=== PATIENT | female | born 1950 | race Caucasian/White ===

== ENCOUNTER 2016-07-27 08:45 | Outpatient (RCR) | payer OTHER ==
[~2016-07-27 08:45] MED LIST: NKM
== END 2016-08-04 | disposition home or self-care (01) ==
LOC: PTY 08:45
DX: M79.1 Myalgia (principal)

== ENCOUNTER 2016-08-07 09:55 | Outpatient (RCR) | payer OTHER | END 2016-09-01 | disposition home or self-care (01) | LOC: PTY 09:55 | DX: M79.1 Myalgia (principal) ==

== ENCOUNTER 2016-09-02 08:30 | Outpatient (RCR) | payer OTHER | END 2016-10-02 | disposition home or self-care (01) | LOC: PTY 08:30 | DX: M79.1 Myalgia (principal) ==

== ENCOUNTER 2016-10-21 08:20 | Outpatient (RCR) | payer OTHER | END 2016-11-01 | disposition home or self-care (01) | LOC: PTY 08:20 | DX: M79.1 Myalgia (principal) ==

== ENCOUNTER 2016-11-19 09:15 | Outpatient (RCR) | payer OTHER | END 2016-12-02 | disposition home or self-care (01) | LOC: PTY 09:15 | DX: M79.1 Myalgia (principal) ==

== ENCOUNTER 2016-12-10 08:35 | Outpatient (RCR) | payer OTHER | END 2017-01-01 | disposition home or self-care (01) | LOC: PTY 08:35 | DX: M79.1 Myalgia (principal) ==

== ENCOUNTER 2017-01-19 08:30 | Outpatient (RCR) | payer OTHER | END 2017-02-01 | disposition home or self-care (01) | LOC: PTY 08:30 | DX: M79.1 Myalgia (principal) ==